=== PATIENT | male | born 1985 | race African-American/Black ===

== ENCOUNTER 2019-08-17 00:53 | Emergency (ER) | payer SELFPAY ==
[~2019-08-17] VITALS: Ht 195.6 cm; Wt 99.8 kg
[2019-08-17 01:19] VITALS: BP 167/103
[2019-08-17] MEDS ORDERED: IBUPROFEN 400 MG TABLET ONE (02:53)
[2019-08-17] MEDS ORDERED: TDAP [DIPH/PERTUSSIS/TET] 0.5 ML VIAL IM ONE ×2 (02:53→03:00)
[2019-08-17] MEDS ORDERED: IBUPROFEN 400 MG TABLET PO ONE (03:00)
== END 2019-08-17 04:06 | disposition home or self-care (01) ==
LOC: ER 00:58
DX: S01.01XA Laceration without foreign body of scalp, initial encounter (principal); Z60.2 Problems related to living alone; W22.8XXA Striking against or struck by other objects, initial encounter; Y93.89 Activity, other specified; Y92.89 Other specified places as the place of occurrence of the external cause; Y99.8 Other external cause status
CPT/HCPCS: 90715